=== PATIENT | female | born 1955 | race Caucasian/White ===

== ENCOUNTER 2020-01-26 20:52 | Emergency (ER) | payer BC, MEDICARE, OTHER ==
[~2020-01-26] VITALS: Ht 160 cm; Wt 90.7 kg
[2020-01-26 20:59] VITALS: BP 153/100
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
--- NOTE | 2020-01-26 21:04 | NUR ---
SEEN AND EXAMINED BY
--- NOTE | 2020-01-26 21:14 | NUR ---
XRAY AT BEDSIDE FOR XRAY
[2020-01-26] MEDS ORDERED: IBUPROFEN 600 MG TABLET ONE (21:47)
--- NOTE | 2020-01-26 21:52 | NUR ---
Patient discharged to home in stable condition. Written and verbal after care instructions given. Patient verbalizes understanding of instruction.
[2020-01-26] MEDS ORDERED: IBUPROFEN 600 MG TABLET PO ONE (22:00)
== END 2020-01-26 21:52 | disposition home or self-care (01) ==
LOC: ER 20:54
DX: R07.89 Other chest pain (principal); I50.9 Heart failure, unspecified; J44.9 Chronic obstructive pulmonary disease, unspecified; K21.9 Gastro-esophageal reflux disease without esophagitis; F41.9 Anxiety disorder, unspecified; M79.7 Fibromyalgia; M06.9 Rheumatoid arthritis, unspecified; F17.200 Nicotine dependence, unspecified, uncomplicated; Z98.890 Other specified postprocedural states; Z90.89 Acquired absence of other organs; Z88.0 Allergy status to penicillin; Z88.2 Allergy status to sulfonamides; Z88.6 Allergy status to analgesic agent; Z88.8 Allergy status to other drugs, medicaments and biological substances; Z60.2 Problems related to living alone; W18.09XA Striking against other object with subsequent fall, initial encounter; Y93.89 Activity, other specified; Y92.59 Other trade areas as the place of occurrence of the external cause; Y99.8 Other external cause status
CPT/HCPCS: 71045-TC